=== PATIENT | female | born 2000 | race Two or more races ===

== ENCOUNTER 2023-01-14 06:18 | Emergency (ER) | payer OTHER ==
[~2023-01-14] VITALS: Ht 160 cm; Wt 68.0 kg
== END 2023-01-14 11:59 | disposition home or self-care (01) ==
LOC: ER 06:18
DX: K52.89 Other specified noninfective gastroenteritis and colitis (principal)

== ENCOUNTER 2025-04-28 10:58 | Emergency (ER) | payer OTHER ==
[~2025-04-28] VITALS: Ht 160 cm; Wt 72.6 kg
[2025-04-28 11:04] VITALS: BP 95/63; O2SAT 99
[2025-04-28] MEDS ORDERED: 0.9 % SODIUM CHLORIDE 1,000 ML IV SCH (11:30)
[2025-04-28] MEDS ORDERED: LACTOBACILLUS ACIDOPHILUS 1 CAP CAP PO ONE ×2 (11:30→11:41)
[2025-04-28] MEDS ORDERED: ONDANSETRON HCL 2 MG/ML VIAL IV ONE (11:30)
[2025-04-28] MEDS ORDERED: FAMOTIDINE/PF 20 MG/2 ML VIAL IV ONE (11:30)
[2025-04-28] MEDS ORDERED: FAMOTIDINE/PF 20 MG/2 ML VIAL ONE (11:40)
[2025-04-28] MEDS ORDERED: ONDANSETRON HCL 2 MG/ML VIAL ONE (11:40)
[2025-04-28 12:32] LABS: BASO % 0.1 % (0.1-1.2); EOS # 0.00 (0.04-0.54); EOS % 0.0 % (0.7-7.0); LYMPH # 0.32 (1.18-3.74); LYMPH % 3.8 % (19.3-53.1); MEAN PLATELET VOLUME 10.10 fl (9.4-12.4); MONO # 0.17 (0.24-0.82); MONO % 2.0 % (4.7-12.5); NEUT # 8.01 (1.56-6.13); NEUT % 94.0 % (34.0-71.1); RED CELL DISTRIBUTION WIDTH 12.7 % (11.6-14.4)
[2025-04-28 12:41] LABS: ERYTHROCYTE SEDIMENTATION RATE 13 mm/hr (0-20)
[2025-04-28 12:53] LABS: ALT/SGPT 22.0 U/L (12-78); AST/SGOT 21.0 U/L (15-37); BILIRUBIN TOTAL 0.77 mg/dL (0.3-1.2); BUN CREA RATIO 15.0 (7.0-25.0); CREATININE SERUM 0.67 mg/dL (0.55-1.02); GFR 105.58; GLOBULINA 3.9 G/DL (2.4-3.5); GLUCOSE FASTING 92.0 mg/dL (65-100); OSMOLALITY SERUM 284.0 MOSM/KG (275-295)
[2025-04-28 14:25] LABS: COVID-19 AG NEGATIVE (NEGATIVE)
[2025-04-28 16:16] LABS: URINE APPEARANCE Clear; URINE BILIRRUBIN Negative (NEGATIVE); URINE BLOOD Negative; URINE COLOR Yellow; URINE GLUCOSE Negative (NEGATIVE); URINE LEUKOCYTE Negative; URINE NITRATE Negative; URINE PROTEIN Trace (NEGATIVE); URINE UROBILINOGEN 0.2 E.U./dl
[2025-04-28 16:21] LABS: URINE BACTERIA 100.7 uL (0.0-1933); URINE EPITHELIAL CELLS 9.3 uL (0.0-38.8); URINE RBC 11.5 uL (0.0-20.8); URINE WBC 6.1 uL (0.0-23.2)
[2025-04-28 16:24] LABS: URINE CAST 0.14 uL (0.0-1.40); URINE KETONE 80 (NEGATIVE)
[2025-04-28] MEDS ORDERED: PROTONIX40 MG PO (17:30)
[2025-04-28] MEDS ORDERED: ABATINEX680 MG PO (17:30)
[2025-04-28] MEDS ORDERED: PEPCID AC20 MG PO (17:30)
== END 2025-04-28 18:00 | disposition home or self-care (01) ==
LOC: EMR PED 10:58 → ER 10:58 → EMR PED 11:08 → ER 11:08
PROVIDERS: Student in an Organized Health Care Education/Training Program
DX: K52.89 Other specified noninfective gastroenteritis and colitis (principal); N39.0 Urinary tract infection, site not specified; K29.70 Gastritis, unspecified, without bleeding; Z20.822 Contact with and (suspected) exposure to COVID-19